=== PATIENT | male | born 1985 | race Caucasian/White ===

== ENCOUNTER 2024-10-22 10:07 | Outpatient (CLI) | payer OTHER, SELFPAY ==
--- NOTE | 2024-10-22 10:00 | NEURO_ITS ---
Impression: # Complains of pain/ discomfort in hands. History of stroke due to factor 5 mutation ? # Right sensory Carpal Tunnel Syndrome ? # Bilateral Ulnar Neuropathy, right more than left, across the elbows. ? # Needle/ EMG exam mildly abnormal in bilateral 1st DI and ADM ? # Clinical correlation recommended Nerve Conduction Studies ?Stim Site NR Peak (ms) P-T Amp (?V) Site1 Site2 Delta-P (ms) Dist (cm) Haris (m/s) Left Median Anti Sensory (2-3nd Digit) Wrist ? 3.5 22.7 Wrist 2-3nd Digit 3.5 14.0 40 Wrist ? 3.4 12.5 Wrist 2-3nd Digit 3.5 14.0 40 Right Median Anti Sensory (2-3nd Digit) Wrist ? 4.4 14.8 Wrist 2-3nd Digit 4.4 14.0 32 Wrist ? 5.6 15.5 Wrist 2-3nd Digit 4.4 14.0 32 Left Radial Anti Sensory (Base 1st Digit) Wrist ? 2.1 14.1 Wrist Base 1st Digit 2.1 0.0 Right Radial Anti Sensory (Base 1st Digit) Wrist ? 2.8 10.1 Wrist Base 1st Digit 2.8 0.0 Left Ulnar Anti Sensory (5th Digit) Wrist ? 3.0 25.8 Wrist 5th Digit 3.0 14.0 47 Right Ulnar Anti Sensory (5th Digit) Wrist ? 2.8 30.6 Wrist 5th Digit 2.8 14.0 50 ?Stim Site NR Onset (ms) O-P Amp (mV) Site1 Site2 Delta-0 (ms) Dist (cm) Haris (m/s) Left Median Motor (Abd Poll Brev) Wrist ? 4.0 1.0 Elbow Wrist 5.2 34.0 65 Elbow ? 9.2 2.0 Right Median Motor (Abd Poll Brev) Wrist ? 3.6 2.6 Elbow Wrist 5.6 32.0 57 Elbow ? 9.2 7.1 Left Ulnar Motor (Abd Dig Minimi) Wrist ? 2.7 6.1 A Elbow Wrist 6.0 31.0 52 A Elbow ? 8.7 5.6 B Elbow Wrist 3.5 22.0 63 B Elbow ? 6.2 2.5 Right Ulnar Motor (Abd Dig Minimi) Wrist ? 2.7 8.0 A Elbow Wrist 6.0 30.0 50 A Elbow ? 8.7 7.1 B Elbow Wrist 4.5 23.0 51 B Elbow ? 7.2 6.3 Electromyography ?Side Muscle Nerve Root Ins Act Fibs Amp Dur Recrt Comment Right 1stDorInt Ulnar C8-T1 Nml Nml Nml >12ms +1 Right Ext Indicis Radial (Post Int) C7-8 Nml Nml Nml Nml Nml Right Ext Digitorum Radial (Post Int) C7-8 Nml Nml Nml Nml Nml Right BrachioRad Radial C5-6 Nml Nml Nml Nml Nml Right PronatorTeres Median C6-7 Nml Nml Nml Nml Nml Right Abd Poll Brev Median C8-T1 Nml Nml Nml Nml Nml Right ABD Dig Min Ulnar C8-T1 Nml Nml Nml >12ms +1 Right FlexPolLong Median (Ant Int) C7-8 Nml Nml Nml Nml Nml Right Abd Poll Long Radial (Post Int) C7-8 Nml Nml Nml Nml Nml Left 1stDorInt Ulnar C8-T1 Nml Nml Nml >12ms +1 Left Ext Indicis Radial (Post Int) C7-8 Nml Nml Nml Nml Nml Left Ext Digitorum Radial (Post Int) C7-8 Nml Nml Nml Nml Nml Left BrachioRad Radial C5-6 Nml Nml Nml Nml Nml Left PronatorTeres Median C6-7 Nml Nml Nml Nml Nml Left Abd Poll Brev Median C8-T1 Nml Nml Nml Nml Nml Left ABD Dig Min Ulnar C8-T1 Nml Nml Nml >12ms +1 Left FlexPolLong Median (Ant Int) C7-8 Nml Nml Nml Nml Nml Left Abd Poll Long Radial (Post Int) C7-8 Nml Nml Nml Nml Nml
== END 2024-10-22 10:08 | disposition home or self-care (01) ==
PROVIDERS: Visit Provider Internal Medicine
DX: G56.01 Carpal tunnel syndrome, right upper limb (principal); G62.9 Polyneuropathy, unspecified; G56.23 Lesion of ulnar nerve, bilateral upper limbs; I63.9 Cerebral infarction, unspecified; F39 Unspecified mood [affective] disorder; D68.9 Coagulation defect, unspecified; Z86.73 Personal history of transient ischemic attack (TIA), and cerebral infarction without residual deficits
CPT/HCPCS: 95886; 95911